=== PATIENT | male | born 1995 | race Two or more races ===

== ENCOUNTER 2022-07-30 09:29 | Emergency (ER) | payer SELFPAY ==
[2022-07-30] MEDS ORDERED: Morphine 4 MG/ML Syringe IVPUSH ONE (10:04)
[2022-07-30] MEDS ORDERED: Diphtheria,Pertussis(Acell),Tetanus Vaccine 0.5 ML Syringe IM ONE (10:52)
[2022-07-30] MEDS ORDERED: Bacitracin Oint 1 GM U/D Packet TOP ONE (10:53)
[2022-07-30] MEDS ORDERED: Acetaminophen 325 MG Tab PO ONE (10:53)
[2022-07-30] MEDS ORDERED: Acetaminophen 500 MG Tab ONE (11:28)
[2022-07-30] MEDS ORDERED: Acetaminophen 500 MG Tab PO PRN (11:30)
== END 2022-07-30 11:43 | disposition home or self-care (01) ==
LOC: MW.ED 09:29
DX: S80.12XA Contusion of left lower leg, initial encounter (principal); Z23 Encounter for immunization; Z91.048 Other nonmedicinal substance allergy status; Z91.013 Allergy to seafood; W17.89XA Other fall from one level to another, initial encounter
CPT/HCPCS: 73562; 73590; 90471; 90715; 96374; 99283; A9270; J2270